=== PATIENT | male | born 1975 | race Caucasian/White ===

== ENCOUNTER 2023-10-03 08:29 | Day surgery (SDC) | payer BC, SELFPAY ==
[2023-09-16 14:43] VITALS: BMI 31.2
--- NOTE | 2023-09-26 14:07 | PC.NURSE ---
Spoke with patient regarding medication Eliquis. Pt. verbalizes understanding that the last dose of ELIQUIS is to be taken on 09/30/2023 and the Endoscopist will instruct them when to restart after the procedure.
--- NOTE | 2023-10-01 08:45 | SUR.PREOP ---
Patient called regarding upcoming procedure. Reviewed preop instructions, appointment times, and procedure prep.
--- NOTE | 2023-10-02 20:47 | PM.HPGS ---
History of Present Illness History of Present Illness Consent: Risks, benefits, and alternatives have been discussed and questions answered. Patient agrees to proceed with procedure. Chief complaint: History colon polyps Narrative: Malcom Ward is a 47 year old male who is referred for colon cancer screening. Review of Systems Review of Systems: All systems reviewed & are unremarkable except as noted in HPI and below PMFSH Past Medical History Medical History Diverticulitis DVT (deep venous thrombosis) multiple recurrent - lifelong anticoag Dyslipidemia HTN (hypertension) Hyponatremia Vitamin D deficiency Social History Social History Smoking status: Never smoker Second hand tobacco smoke exposure: No Alcohol intake: current Drinks per week: 15 Alcohol use details: beer on weekends Substance use: never Substance use type: does not use Living arrangements: with family Occupation/Education: occupation Gender identity (if verbalized by the patient): Male Sexual Orientation (if Verbalized by the Patient): Straight or Heterosexual Spiritual care concerns: No Agree to blood products: Yes Meds Home Medications and Allergies Home Medications Medication Instructions Recorded Confirmed Type cholecalciferol (vitamin D3) 50 50 mcg PO DAILY 05/27/22 09/16/23 History mcg (2,000 unit) capsule apixaban 2.5 mg tablet (Eliquis) 2.5 mg PO BID #180 tabs 07/15/23 10/03/23 Rx atorvastatin 20 mg tablet 20 mg PO QHS #90 tabs 07/15/23 09/16/23 Rx lisinopril 10 mg tablet See Rx Instructions .Route 07/15/23 09/16/23 Rx .COMPLEX #90 tabs zdpeuxhn-gigcrcue-mcwzs acid 400 1 tablet PO DAILY 09/16/23 09/16/23 History mcg-vit K 20 mcg-lycop 300 mcg tablet (One-A-Day Men's Multivitamin) tadalafil 20 mg tablet 20 mg PO PRN PRN Erectile 09/16/23 09/16/23 History Dysfunction Allergies Allergy/AdvReac Type Severity Reaction Status Date / Time No Known Allergies Allergy Unknown Verified 10/03/23 08:37 Exam Const: General: alert Orientation/consciousness: patient oriented x3 Resp: Auscultation: clear to auscultation bilaterally Cardio: Rhythm: regular rhythm GI: GI Palp: Yes Soft to palpation and No Tenderness to palpation present (GI) Neuro: General: patient oriented x3 Assessment and Plan Assessment and plan (1) Colon cancer screening: Code(s): Z12.11 - Encounter for screening for malignant neoplasm of colon Status: Acute Assessment and Plan: Colonoscopy with possible biopsy or polypectomy or cautery or injection of substances.
[2023-10-03 08:43] VITALS: BP 151/98; PULSE 100; RESP 16; TEMP 36.9; O2SAT 100
[2023-10-03] MEDS: LACTATED RINGERS 1,000 ML 150 ML IV CONT (08:55)
--- NOTE | 2023-10-03 09:14 | WPDANESEPPF ---
Anes - Initial Pre Proc Eval Procedure: Operation Date: 10/03/23 10:00 Proposed Procedures p Colonoscopy - Yousif Burgess MD Date/Time: 10/03/23 09:14 Surgeon: Yousif Burgess MD Pre Op Diagnosis: History colon polyps Patient Data Age: 47 Gender: M Height: 1.83 m Weight: 107.4 kg Last Vital Signs Temp 98.5 F 10/03/23 08:43 Pulse 100 10/03/23 08:43 Resp 16 10/03/23 08:43 BP 151/98 H 10/03/23 08:43 Pulse Ox 100 10/03/23 08:43 O2 Del Method Room Air 10/03/23 08:43 Allergies Allergy/AdvReac Type Severity Reaction Status Date / Time No Known Allergies Allergy Unknown Verified 10/03/23 08:37 Home Medications Medication Instructions Recorded Confirmed Type cholecalciferol (vitamin D3) 50 50 mcg PO DAILY 05/27/22 09/16/23 History mcg (2,000 unit) capsule apixaban 2.5 mg tablet (Eliquis) 2.5 mg PO BID #180 tabs 07/15/23 10/03/23 Rx atorvastatin 20 mg tablet 20 mg PO QHS #90 tabs 07/15/23 09/16/23 Rx lisinopril 10 mg tablet See Rx Instructions .Route 07/15/23 09/16/23 Rx .COMPLEX #90 tabs tevlafqn-trinzmpz-jagde acid 400 1 tablet PO DAILY 09/16/23 09/16/23 History mcg-vit K 20 mcg-lycop 300 mcg tablet (One-A-Day Men's Multivitamin) tadalafil 20 mg tablet 20 mg PO PRN PRN Erectile 09/16/23 09/16/23 History Dysfunction Patient hx anesthesia problems: none Family hx anesthesia problems: none Results Review: All pre-operative results and documents have been reviewed as part of the pre-operative evaluation. [facility] Past Medical History Medical History (Updated 10/02/23 @ 20:48 by Yousif Burgess MD) Diverticulitis DVT (deep venous thrombosis) multiple recurrent - lifelong anticoag Dyslipidemia HTN (hypertension) Hyponatremia Vitamin D deficiency Social History Social History ) Smoking status: Never smoker Second hand tobacco smoke exposure: No Alcohol intake: current Drinks per week: 15 Alcohol use details: beer on weekends Substance use: never Substance use type: does not use Living arrangements: with family Occupation/Education: occupation Gender identity (if verbalized by the patient): Male Sexual Orientation (if Verbalized by the Patient): Straight or Heterosexual Spiritual care concerns: No Agree to blood products: Yes Anes - Eval Final PreProcedure Day of Procedure 10/03/23 09:14 Patient weight: obese Heart: regular rate and rhythm Lungs: clear to auscultation Airway: Mallampati scale class II Neurological: alert and oriented Last oral intake: >/= 8 hours ASA classification: III Emergent: no Anesthetic plan: proceed Anesthesia type and monitoring: general GIVS and standard monitoring Results Review: All pre-operative results and documents have been reviewed as part of the pre-operative evaluation. Informed Consent: The patient's anesthetic plan and its attendant risks and benefits were discussed with the patient/family/POA. Questions were solicited and answers provided to the satisfaction of the patient/family/POA.
[2023-10-03 10:23] VITALS: BP 124/73; PULSE 89; RESP 20; O2SAT 99
[2023-10-03 10:33] VITALS: BP 111/76; PULSE 75; RESP 20; O2SAT 100
[2023-10-03 10:43] VITALS: BP 119/85; PULSE 84; RESP 20; O2SAT 100
== END 2023-10-03 10:52 | disposition home or self-care (01) ==
PROVIDERS: PCP Physician Assistant Medical; Visit Provider Internal Medicine Gastroenterology
PROC: 0DJD8ZZ Inspection of Lower Intestinal Tract, Via Natural or Artificial Opening Endoscopic (ICD-10-PCS; CPT 45378; principal; 2023-10-03 10:00)
DX: Z12.11 Encounter for screening for malignant neoplasm of colon (principal); K57.30 Diverticulosis of large intestine without perforation or abscess without bleeding; D12.5 Benign neoplasm of sigmoid colon; I10 Essential (primary) hypertension; E78.5 Hyperlipidemia, unspecified; E55.9 Vitamin D deficiency, unspecified; Z86.718 Personal history of other venous thrombosis and embolism; Z79.01 Long term (current) use of anticoagulants; E66.9 Obesity, unspecified; Z68.32 Body mass index [BMI] 32.0-32.9, adult
CPT/HCPCS: 45385; 88305; J2001; J2704; J7120